=== PATIENT | female | born 1995 | race Caucasian/White ===

== ENCOUNTER 2019-09-25 20:46 | Emergency (ER) | payer BC ==
[2019-09-25 21:31] LABS: #Basophils 0.1 thou/uL (0.0-0.2); #Eosinphils 0.2 thou/uL (0.0-0.7); #Lymphocytes 2.5 thou/uL (1.20-3.40); #Monocytes 0.5 thou/uL (0.11-0.59); #Neutrophils 6.3 thou/uL (1.40-6.50); %Basophils 0.5 % (0.0-1.0); %Eosinophils 1.9 % (0.0-10.0); %Lymphocytes 26.1 % (21.0-51.0); %Monocytes 5.6 % (0.0-10.0); %Neutrophils 65.9 % (42.0-75.0); Hemoglobin 13.7 g/dL (12.0-16.0); Mean Corpuscular Hemoglobin 31.9 pg (27.0-31.0); Mean Corpuscular Volume 88.8 fL (78.0-98.0); Mean Platelet Volume 8.1 fL (7.4-10.4); Platelet Count 196 thou/uL (130-400); RBC Distribution Width 12.5 % (11.5-14.5); Red Blood Cell (RBC) Count 4.29 mill/uL (4.20-5.40); White Blood Cell (WBC) Count 9.6 thou/uL (4.8-10.8)
[2019-09-25 21:55] LABS: ALT (SGPT) Less than 7 U/L (8-55); AST (SGOT) 8 U/L (5-34); Albumin 3.7 g/dL (3.5-5.0); Alkaline Phosphatase 42 U/L (40-110); Anion Gap 10 mmol/L (10-20); BUN (Urea Nitrogen) 7 mg/dL (7.0-18.7); Bilirubin, Total 0.3 mg/dL (0.2-1.2); Calc. Creatinine Clearance 0 mL/min (70-130); Calcium 8.8 mg/dL (7.8-10.44); Carbon Dioxide 21 mmol/L (22-29); Chloride 108 mmol/L (98-107); Estimated GFR-MDRD Greater than 90; Globulin 2.9 g/dL (2.4-3.5); Glucose 114 mg/dL (70-105); Potassium 3.3 mmol/L (3.5-5.1); Protein, Total 6.6 g/dL (6.0-8.3); Sodium 136 mmol/L (136-145)
[2019-09-25 22:02] LABS: Bilirubin Negative (Negative); Blood, Urine Negative (Negative); Clarity Clear (Clear); Glucose, Urine (Dipstick) 30 mg/dL (Negative); Leukocyte Negative Leu/uL (Negative); Nitrite Negative (Negative); Protein, Urine (Dipstick) 20 mg/dL (Neg-Trace); Urobilinogen Normal mg/dL (Less than 2)
== END 2019-09-25 23:14 | disposition home or self-care (01) ==
LOC: ERS 20:46
DX: O26.892 Other specified pregnancy related conditions, second trimester (principal); R10.30 Lower abdominal pain, unspecified; Z87.442 Personal history of urinary calculi; Z3A.16 16 weeks gestation of pregnancy
CPT/HCPCS: 36415; 80053; 81003; 84702; 85025

== ENCOUNTER 2020-02-02 19:27 | Day surgery (SDC) | payer BC, OTHER ==
[2020-02-02] MEDS ORDERED: hydrALAZINE 20 MG/ML VIAL SLOW IVP PRN (20:20)
--- NOTE | 2020-02-02 20:24 | PDOC.FPROB ---
FMR OB H&P: HPI - History of Present Illness Chief Complaint: contractions Indentification: History of Present Illness: 24YO @ 35.1 WGA presenting for evaluation for contractions. Reports she started having low abdominal tightness suspicious for contractions yesterday @ ~ 4:30PM. Tried taking a bath and taking tylenol which did not help much but reports they eventually subsided on their own. However, shortly after waking up this AM she started to feel them again but did not time them. Then, around 1750 today they started to occur regularly and were painful so she called the [employer] teacher number for her OB but never got a call back. She then decided to proceed to L&D for evaluation. Reports regular movement. No LOF, VB, vaginal discharge, fever/chills, N/V/D, cough, congestion, hematuria, dysuria or recent intercourse. Reports she was induced for her last 2 pregnancies so isn't sure what contractions feel like. Reports she has been staying well hydrated. Primary Care Physician: Kelly FMR OB H&P: Current - Care : 3 Para: 2000 Gestational age: 35.1 Due date: 03/07/20 Course/Complications: none - OB Labs GBS: unknown FMR OB H&P: History - Past Medical History PMH: None - OB History OB History: h/o IOL @ 38 weeks x2 for appendicitis and renal stone requiring stent placement - Surgical History Sx History: Appe & renal stent placement - Social History Social History: No TAD. Lives at home with & 2 daughters - Family History Family History: Mother w/ h/o labor @ unknown gestational age FMR OB H&P: Medications - Current Home Medications: Medication Instructions Recorded Confirmed Type Vit37/Iron/Folic Acid 1 tab PO DAILY 02/02/20 02/02/20 History [Prenata Chewable Tablet] Allergies/Adverse Reactions: Allergies Allergy/AdvReac Type Severity Reaction Status Date / Time No Known Allergies Allergy Verified 02/02/20 19:53 FMR OB H&P: Vital Signs - Maternal Vital signs: BP: 135/78 HR: 85 RR: 16 Temp: 98.0F - Heart Tones Baseline: 135 Variability: moderate Acceleration: present Deceleration: absent [place] contractions every: none noted on monitor FMR OB H&P: Physical Exam - Physical Exam General: NAD, awake, alert and oriented HEENT: normocephalic and atraumatic, MMM, grossly normal vision, grossly normal hearing Neck: supple, FROM Heart: RRR, normal S1/S2, no murmurs/rubs/gallops, pulses present, no edema General: CTAB, no respiratory distress, good air movement, no rales/rhonchi, no wheezing, no retractions Abdomen: gravid, non-tender, other (non-palpable contractions) Musculoskeletal: normal gait and station, pulses present, FROM in all four extremities Neurological: cranial nerves II through XII intact, sensation to pain,touch and proprioception grossly normal, no focal deficit Skin: no rash Lymphatic: no unusual bruising or bleeding, no purpura, no petechia Psychiatric: intact recent and remote memory, good judgement and insight, normal mood and affect - Pelvic Exam Vulva: normal hair distribution, no discharge, no blood SVE: 1/thick/high Membranes: intact Presentation: cephalic FMR OB H&P: A/P - Problem List (1) contractions Current Visit: Yes Status: Acute Code(s): O47.9 - FALSE LABOR, UNSPECIFIED (2) Current Visit: Yes Status: Acute Qualifiers: Weeks of gestation: 35 weeks Qualified Code(s): Z3A.35 - 35 weeks gestation of Disposition: 24YO @ 35.1 WGA presenting for evaluation for contractions. Contractions, r/o labor: - No palpable contractions or contractions detected on TOCO since arrival. FHTs reassuring w/ 135 baseline & accels noted. - SVE /H. - Will give 1L bolus of IVFs & check a UA to r/o a UTI. sIUP @ 35.1 WGA: - Aware, will encourage routine f/u w/ Dr. Mendoza as scheduled. Continue PNVs. Dispo: Will give IVFs & await UA results to r/o a UTI for possible cause of likely [place] contractions. Discussion: Date/Time: 02/02/202022 This H&P was discussed with Dr. Sierra who agrees with the above documentation and plan.
[2020-02-02] MEDS ORDERED: Lactated Ringer's 1,000 ML IV SCH (20:30)
--- NOTE | 2020-02-02 20:37 | PDOC.EVN ---
Event Note - Event Note Event Note: [facility] H&P Triage A 2029 I have seen the patient at bedside with Dr Duffy CC: Possible CTX on/off since 1700 (some yesterday) 24 yo at 35 weeks with possible CTX, no LOF,m no VB, no recent sex. No HX Spont PTB. Sees dr Mendoza for PNC. review of Systems: complete ROS performed and as per HPI. COVID screen neg Past Med: none Past Surg: past APPY and past renal stents for stones OB: HX IOL for medical complications (appy/renal stones in past- one with each ). No issues this ALLERGIES: none Physical: NAD CX 1cm per Dr Duffy Monitors: reactive NST 130s, no CTX Assessment and Plan: 35 weeks threatened PTL, no evidence true PTL. Possible devin-campbell affect as well. 1. Check UA 2. IVF hydrate 3. OBS in L&D for now
[2020-02-02 20:46] LABS: Bacteria/HPF 3+ HPF (None Seen); Bilirubin Negative (Negative); Blood, Urine Negative (Negative); Clarity Clear (Clear); Glucose, Urine (Dipstick) Normal (Negative); Leukocyte 75 Leu/uL (Negative); Mucous/LPF Rare LPF (<2+); Nitrite 2+ (Negative); Protein, Urine (Dipstick) 20 mg/dL (Neg-Trace); RBC/HPF 0-3 HPF (0-3); Renal Epithelial 0-3 HPF (None Seen); Urobilinogen Normal mg/dL (Less than 2)
[2020-02-02] MEDS ORDERED: Acetaminophen 500 MG TAB PO PRN (20:47)
--- NOTE | 2020-02-02 20:56 | PDOC.BPN ---
<CliveAnna - Last Filed: 02/02/20 20:57> - Brief Progress Note 24YO @ 35.1 WGA presenting for evaluation for contractions. Contractions, r/o labor: - No palpable contractions or contractions detected on TOCO since arrival. FHTs reassuring w/ 135 baseline & accels noted. - SVE //H. - UA notable for nitrite, LE, ketones, WBCs & 3+ bacteria c/w UTI. Ctxs therefore likely 2/2 infection and mild dehydration. - Will give complete 1L fluid bolus and tx infection w/ 7 day course of macrobid. Encouraged increased PO hydration at home. sIUP @ 35.1 WGA: - Aware, will encourage routine f/u w/ Dr. Mendoza as scheduled. Continue PNVs. Dispo: Will d/c home on PO abx for UTI. This plan was discussed with Dr. Sierar who agrees with the above documentation and plan. <Bran Seirra - Last Filed: 02/02/20 23:59> - Brief Progress Note FACULTY: Rigo here. Lab noted. Agree with UTI RX
== END 2020-02-02 23:35 | disposition home or self-care (01) ==
LOC: L&D/OP 19:27
PROVIDERS: ATTEND Obstetrics & Gynecology
DX: O47.03 False labor before 37 completed weeks of gestation, third trimester (principal); Z3A.35 35 weeks gestation of pregnancy
CPT/HCPCS: 81001; 87086; 96360; 99283

== ENCOUNTER 2020-02-26 09:53 | Outpatient (CLI) | payer BC, OTHER ==
[2020-02-27 13:12] LABS: SARS-CoV-2 MS2 Positive; SARS-CoV-2 N Gene Negative; SARS-CoV-2 S Gene Negative; SARS-CoV-2 orf1ab Negative
== END 2020-02-26 09:54 | disposition home or self-care (01) ==
LOC: LABSCS 09:53
PROVIDERS: ATTEND Obstetrics & Gynecology
DX: Z01.812 Encounter for preprocedural laboratory examination (principal); Z11.59 Encounter for screening for other viral diseases
CPT/HCPCS: 87635; U0003

== ENCOUNTER 2020-02-26 15:45 | Inpatient (IN) | payer BC, MEDICAID, OTHER ==
[~2020-02-26 15:45] MED LIST: Bupivacaine 0.25% HCL 30 ML VIAL ONE
[2020-02-26] MEDS ORDERED: hydrALAZINE 20 MG/ML VIAL SLOW IVP PRN ×3 (15:48→22:27)
[2020-02-26] MEDS ORDERED: Diphenoxylate HCl/Atropine Tablet PO PRN ×2 (17:03)
[2020-02-26] MEDS ORDERED: Carboprost 250 MCG/ML AMP IM PRN (17:03)
[2020-02-26] MEDS ORDERED: Promethazine HCl 25 MG/ML VIAL IM PRN ×2 (17:03→20:47)
[2020-02-26] MEDS ORDERED: Ondansetron PF 4 MG/2 ML Vial IVP PRN ×3 (17:03→22:27)
[2020-02-26] MEDS ORDERED: Lidocaine 1% (PF) 30 ML VIAL SC PRN (17:03)
[2020-02-26] MEDS ORDERED: HYDROcodone/Acetaminophen 5/325 mg Tablet PO PRN ×3 (17:03→22:27)
[2020-02-26] MEDS ORDERED: Ibuprofen 800 MG TAB PO PRN (17:03)
[2020-02-26] MEDS ORDERED: Methylergonovine 0.2 MG/ML VIAL IM PRN (17:03)
[2020-02-26] MEDS ORDERED: Misoprostol 200 MCG TAB PR PRN (17:03)
[2020-02-26] MEDS ORDERED: Acetaminophen 500 MG TAB PO PRN (17:03)
[2020-02-26] MEDS ORDERED: Butorphanol Tartrate 1 MG/ML VIAL SLOW IVP PRN (17:03)
[2020-02-26] MEDS ORDERED: NS / Oxytocin 40 units/1000ml 1,000 ML IV PRN (17:03)
[2020-02-26] MEDS ORDERED: Fentanyl 4 mcg/Bup 0.1% Cadd 100 ML ONE (17:04)
[2020-02-26 17:26] LABS: Mean Corpuscular Hemoglobin 29.6 pg (27.0-31.0); Mean Corpuscular Volume 84.8 fL (78.0-98.0); Mean Platelet Volume 9.2 fL (7.4-10.4); Platelet Count 189 thou/uL (130-400); White Blood Cell (WBC) Count 12.8 thou/uL (4.8-10.8)
[2020-02-26 17:36] VITALS: BMI 33.7
[2020-02-26] MEDS: Lactated Ringer's 1,000 ML IV SCH ×2 (17:36→18:07)
[2020-02-26 18:05] LABS: HBSAg Index 0.21 S/CO (0-0.99); Hep B Surf Ag Non-Reactive S/CO (NonReactive)
[2020-02-26 18:06] LABS: Syphilis Antibody Nonreactive (Nonreactive); Syphilis Antibody Index 0.04 S/CO (<1.00 Non-Reactive)
[2020-02-26] MEDS ORDERED: FENTANYL CITRATE EPIDURAL SCH (20:45)
[2020-02-26] MEDS ORDERED: ROPIVACAINE HCL EPIDURAL SCH (20:45)
[2020-02-26] MEDS ORDERED: EPHEDRINE 25 MG/5 ML SYRINGE SLOW IVP PRN (20:47)
[2020-02-26] MEDS ORDERED: diphenhydrAMINE 50 MG/ML VIAL IVP PRN (20:47)
[2020-02-26] MEDS ORDERED: Acetaminophen 325 MG TAB PO PRN (20:47)
[2020-02-26] MEDS ORDERED: Naloxone HCl 0.4 mg/ml Vial IVP PRN ×2 (20:47)
[2020-02-26] MEDS ORDERED: Lactated Ringer's 500 ML IV PRN (20:47)
[2020-02-26] MEDS ORDERED: Fentanyl 4 mcg/Bupivacaine 0.1% Cassette 100 ML EPIDURAL SCH (21:00)
[2020-02-26] MEDS ORDERED: Communication Order-Pharmacy FS SCH (21:00)
[2020-02-26] MEDS ORDERED: Lidocaine 1% (PF) 30 ML VIAL ONE (21:53)
[2020-02-26] MEDS ORDERED: NS / Oxytocin 40 units/1000ml 1,000 ML ONE (21:53)
[2020-02-26] MEDS ORDERED: Bisacodyl 10 MG SUPP PR PRN (22:27)
[2020-02-26] MEDS ORDERED: Lanolin Ointment 7 GM TUBE TOP PRN (22:27)
[2020-02-26] MEDS ORDERED: Benzocaine-Menthol 82.5 ML CAN TOP PRN (22:27)
[2020-02-26] MEDS ORDERED: Milk Of Magnesia 30 ML UDCUP PO PRN (22:27)
[2020-02-26] MEDS ORDERED: Preparation H Ointment 28 GM TUBE PR PRN (22:27)
[2020-02-26] MEDS ORDERED: Zolpidem Tartrate 5 MG TAB PO PRN (22:27)
[2020-02-26] MEDS ORDERED: Misoprostol 200 MCG TAB VAG PRN (22:27)
[2020-02-26] MEDS ORDERED: diphenhydrAMINE 25 MG CAP PO PRN (22:27)
[2020-02-26] MEDS ORDERED: NS / Oxytocin 40 units/1000ml 1,000 ML IV SCH (22:30)
[2020-02-27] MEDS: Ibuprofen 800 MG TAB PO SCH ×4 (00:49→20:13)
[2020-02-27] MEDS: HYDROcodone/Acetaminophen 5/325 mg Tablet PO PRN ×4 (06:26→22:43)
[2020-02-27] MEDS: Prenatal Vitamin 1 TAB PO SCH (08:11)
[2020-02-27] MEDS: Docusate Calcium (SURFAK) 240 MG CAP PO SCH ×2 (08:11→20:13)
[2020-02-27] MEDS: Ferrous Sulfate 325 MG TAB PO SCH ×2 (08:12→17:56)
[2020-02-27] MEDS: Adacel (T-DAP) 0.5 ML SYRINGE IM ONE (17:55)
[2020-02-28] MEDS: Ibuprofen 800 MG TAB PO SCH (06:18)
[2020-02-28 08:19] VITALS: BP 124/66; TEMP 97.8
[2020-02-28] MEDS: Prenatal Vitamin 1 TAB PO SCH (08:49)
[2020-02-28] MEDS: Ferrous Sulfate 325 MG TAB PO SCH (08:49)
[2020-02-28] MEDS: HYDROcodone/Acetaminophen 5/325 mg Tablet PO PRN (08:49)
[2020-02-28] MEDS: Docusate Calcium (SURFAK) 240 MG CAP PO SCH (08:49)
[2020-02-28] MEDS: Adacel (T-DAP) 0.5 ML SYRINGE IM ONE (12:22)
== END 2020-02-28 13:15 | disposition home or self-care (01) | DRG 807 ==
LOC: L&D/OP 15:45 → L&D 19:18 → 3SW 02-27 01:29
PROVIDERS: ADMIT Obstetrics & Gynecology; ATTEND Obstetrics & Gynecology
PROC: 10E0XZZ Delivery of Products of Conception, External Approach (ICD-10-PCS; principal; 2020-02-26)
DX: O80 Encounter for full-term uncomplicated delivery (principal); Z37.0 Single live birth; Z3A.38 38 weeks gestation of pregnancy
CPT/HCPCS: 36415; 51702; 85014; 85018; 85027; 86780; 86850; 86900; 86901; 87340; 87635; 90715; 99285; J2001; J2795; J3010; S0020; U0003